=== PATIENT | male | born 1950 | race Caucasian/White ===

== ENCOUNTER 2019-03-21 20:18 | Emergency (ER) | payer OTHER ==
[2019-03-21 21:04] LABS: #Basophils 0.1 thou/uL (0.0-0.2); #Eosinphils 0.5 thou/uL (0.0-0.7); #Lymphocytes 1.8 thou/uL (1.20-3.40); #Monocytes 0.7 thou/uL (0.11-0.59); #Neutrophils 6.4 thou/uL (1.40-6.50); %Eosinophils 4.8 % (0.0-10.0); %Monocytes 7.3 % (0.0-10.0); Mean Corpuscular HGB CONC 31.9 g/dL (32.0-36.0); Mean Corpuscular Hemoglobin 28.9 pg (27.0-31.0); Mean Corpuscular Volume 90.4 fL (78.0-98.0); Mean Platelet Volume 5.3 fL (7.4-10.4); Platelet Count 243 thou/uL (130-400); RBC Distribution Width 15.1 % (11.5-14.5); Red Blood Cell (RBC) Count 4.86 mill/uL (4.70-6.10); White Blood Cell (WBC) Count 9.4 thou/uL (4.8-10.8)
[2019-03-21 21:10] LABS: ALT (SGPT) 26 U/L (8-55); AST (SGOT) 16 U/L (5-34); Albumin 3.5 g/dL (3.4-4.8); Alkaline Phosphatase 109 U/L (40-110); Anion Gap 14 mmol/L (10-20); BUN (Urea Nitrogen) 62 mg/dL (8.4-25.7); Bilirubin, Total 0.2 mg/dL (0.2-1.2); Calc. Creatinine Clearance 0 mL/min (70-130); Calcium 8.4 mg/dL (7.8-10.44); Carbon Dioxide 23 mmol/L (23-31); Chloride 109 mmol/L (98-107); Estimated GFR-MDRD 35; Glucose 158 mg/dL (80-115); Potassium 6.2 mmol/L (3.5-5.1); Protein, Total 7.5 g/dL (5.8-8.1); Sodium 140 mmol/L (136-145)
[2019-03-21 21:18] LABS: Bilirubin Negative (Negative); Blood, Urine Trace (Negative); Clarity Clear (Clear); Glucose, Urine (Dipstick) Negative (Negative); Leukocyte Negative (Negative); Nitrite Negative (Negative); Protein, Urine (Dipstick) > or equal to 300 mg/dL (Neg-Trace); Urobilinogen 0.2 mg/dL (Less than 2)
[2019-03-21 21:22] LABS: Bacteria/HPF Rare-Few HPF (None Seen); RBC/HPF 0-3 HPF (0-3); Squamous Epithelial 0-3 HPF (0-3); WBC/HPF 0-3 HPF (0-3)
[2019-03-21] MEDS ORDERED: Dextrose 50% Abboject 50 ML SYRINGE ONE (21:31)
[2019-03-21] MEDS ORDERED: Insulin Regular 300 UNITS/3 ML VIAL ONE (21:31)
[2019-03-21] MEDS ORDERED: Albuterol Sulfate 2.5 mg/0.5 ml Neb ONE (21:31)
[2019-03-21] MEDS ORDERED: Calcium Gluc 4.6 MEQ/10 ML (100 MG/ML) ONE (21:46)
[2019-03-21] MEDS ORDERED: Sodium Chloride 0.9% 100 ML ONE (21:48)
[2019-03-21 21:57] LABS: Phosphorus 3.9 mg/dL (2.3-4.7)
--- NOTE | 2019-03-21 23:30 | RAD ---
RADIOGRAPH CHEST 1 VIEW: DATE: 03/21/2019 TIME: 10:39 PM HISTORY: 68-year-old male with dyspnea COMPARISON: 01/22/2013 FINDINGS: There is a new finding of consolidation at the right lung base, totally silhouetting the right hemidi aphragm and partially silhouetting the right heart border. There are diffusely prominent interstitial markings elsewhere bilaterally. No pneumothorax. IMPRESSION: Right basilar consolidation which could either represent pneumonia or atelectasis.
== END 2019-03-22 00:18 | disposition short-term general hospital (02) ==
LOC: MADERS 20:18
DX: E87.5 Hyperkalemia (principal); N17.9 Acute kidney failure, unspecified; J18.1 Lobar pneumonia, unspecified organism; E11.9 Type 2 diabetes mellitus without complications; Z79.4 Long term (current) use of insulin; N40.0 Benign prostatic hyperplasia without lower urinary tract symptoms; E78.5 Hyperlipidemia, unspecified; E78.00 Pure hypercholesterolemia, unspecified; I10 Essential (primary) hypertension; E66.9 Obesity, unspecified; J44.9 Chronic obstructive pulmonary disease, unspecified; F43.10 Post-traumatic stress disorder, unspecified; Z79.899 Other long term (current) drug therapy
CPT/HCPCS: 36416; 71045; 80053; 81003; 81015; 82570; 83735; 83935; 84100; 84300; 85025; 93005; 96365; 96366; 96375; J1815; J3490; J7611

== ENCOUNTER 2019-06-22 17:26 | Emergency (ER) | payer MEDICARE, OTHER ==
[~2019-06-22 17:26] MED LIST: Calcium Chloride 1 GM/10 ML Abboject SYRINGE ONE; DOPamine/D5W 400 mg/250 ml PREMIX ONE; EPINEPHrine 1 MG/10 ML Abboject SYRINGE ONE; Norepinephrine 4 MG/4 ML VIAL ONE; Sodium Bicarb 50 MEQ/50 ML Abboject 8.4% SYRINGE ONE; Sodium Chloride 0.9% 1,000 ML BAG ONE
[2019-06-22 17:49] LABS: #Basophils 0.2 thou/uL (0.0-0.2); #Eosinphils 0.3 thou/uL (0.0-0.7); #Lymphocytes 5.1 thou/uL (1.20-3.40); #Monocytes 1.1 thou/uL (0.11-0.59); #Neutrophils 7.9 thou/uL (1.40-6.50); %Basophils 1.5 % (0.0-1.0); %Eosinophils 2.1 % (0.0-10.0); %Lymphocytes 34.8 % (21.0-51.0); %Monocytes 7.6 % (0.0-10.0); Anisocytosis MODERATE=16-30 cells (100X) (0-5/hpf); Hemoglobin 9.9 g/dL (14.0-18.0); Hypochromia SLIGHT = 6-15 cells (100X) (0-5/hpf); MDiff Complete? YES; Mean Corpuscular HGB CONC 29.1 g/dL (32.0-36.0); Mean Corpuscular Hemoglobin 25.9 pg (27.0-31.0); Mean Corpuscular Volume 88.8 fL (78.0-98.0); Mean Platelet Volume 5.8 fL (7.4-10.4); Platelet Count 397 thou/uL (130-400); Red Blood Cell (RBC) Count 3.85 mill/uL (4.70-6.10); White Blood Cell (WBC) Count 14.6 thou/uL (4.8-10.8)
[2019-06-22] MEDS ORDERED: Norepinephrine 4 MG/4 ML VIAL ONE (17:52)
[2019-06-22 17:53] LABS: INR-International Normal Ratio 1.2; PTT 29.3 SEC (22.9-36.1); Prothrombin Time 15.5 SEC (12.0-14.7)
--- NOTE | 2019-06-22 17:58 | RAD ---
PORTABLE CHEST ONE VIEW: 06/22/19 at 5:54 p.m. HISTORY: Respiratory failure, CPR. FINDINGS: Comparison is made with exam from previous day. FINDINGS/IMPRESSION: There has been interval placement of an endotracheal tube with tip at the level of the clavicular hea ds. The heart size is stable. There is an opacity in the right lower lung with accompanying effusion. There is pulmonary vascular congestion. No pneumothoraces are seen. POS: [facility]
[2019-06-22 18:02] LABS: ALT (SGPT) 35 U/L (8-55); AST (SGOT) 39 U/L (5-34); Albumin 2.3 g/dL (3.4-4.8); Alkaline Phosphatase 254 U/L (40-110); Anion Gap 23 mmol/L (10-20); BUN (Urea Nitrogen) 37 mg/dL (8.4-25.7); Bilirubin, Total 0.3 mg/dL (0.2-1.2); CK (CPK) 162 U/L (30-200); Calc. Creatinine Clearance 0 mL/min (70-130); Carbon Dioxide 20 mmol/L (23-31); Chloride 107 mmol/L (98-107); Estimated GFR-MDRD 34; Globulin 3.9 g/dL (2.4-3.5); Glucose 246 mg/dL (80-115); Potassium 5.1 mmol/L (3.5-5.1); Protein, Total 6.2 g/dL (5.8-8.1); Sodium 145 mmol/L (136-145)
[2019-06-22 18:03] LABS: Troponin I 0.024 ng/mL (< 0.028)
[2019-06-22 18:11] LABS: CKMB 8.8 ng/mL (0-6.6)
== END 2019-06-22 18:50 | disposition short-term general hospital (02) ==
LOC: MADERS 17:26
DX: I46.9 Cardiac arrest, cause unspecified (principal); J90 Pleural effusion, not elsewhere classified; E78.5 Hyperlipidemia, unspecified; E78.00 Pure hypercholesterolemia, unspecified; E11.9 Type 2 diabetes mellitus without complications; E66.9 Obesity, unspecified; J44.9 Chronic obstructive pulmonary disease, unspecified; F43.10 Post-traumatic stress disorder, unspecified; Z79.4 Long term (current) use of insulin
CPT/HCPCS: 31500; 36416; 71045; 80053; 82550; 82553; 84484; 85025; 85610; 85730; 92950; 96365; 96368; 96375; 96376; J0171; J1265; J7050; J7070